=== PATIENT | female | born 1980 | race Caucasian/White ===

== ENCOUNTER → 2021-06-25 | Outpatient (CLI) | payer BC ==
[~2021-06-25] MED LIST: ESCITALOPRAM OX20 MG PO
[2021-06-25 14:40] LABS: BASO % 1 % (0-3); EOS # 0.1 x10^3/uL (0.0-0.7); EOS % 1 % (0-3); HEMATOCRIT 37.9 % (36.0-47.0); HEMOGLOBIN 12.6 g/dL (12.0-15.5); LYMPH # 1.1 x10^3/uL (1.0-4.8); LYMPH % 17 % (24-48); MEAN CORPUSCULAR HEMOGLOBIN 29 pg (25-35); MEAN CORPUSCULAR HGB CONC 33 g/dL (31-37); MEAN CORPUSCULAR VOLUME 88 fL (79-100); MONO # 0.5 x10^3/uL (0.0-1.1); MONO % 8 % (0-9); NEUT # 4.7 x10^3/uL (1.8-7.7); NEUT % 73 % (31-73); PLATELET COUNT 273 x10^3/uL (140-400); RED BLOOD COUNT 4.31 x10^6/uL (3.50-5.40); RED CELL DISTRIBUTION WIDTH 12.8 % (11.5-14.5); WHITE BLOOD COUNT 6.5 x10^3/uL (4.0-11.0)
[2021-06-25 14:53] LABS: BILIRUBIN,URINE NEGATIVE (NEG); CLARITY,URINE CLEAR; COLOR,URINE YELLOW; NITRITE,URINE NEGATIVE (NEG); PROTEIN,URINE NEGATIVE (NEG-TRACE); UROBILINOGEN,URINE 0.2 mg/dL (0.2 mg/dL)
[2021-06-25 15:13] LABS: ALBUMIN 3.7 g/dL (3.4-5.0); CALCIUM 9.1 mg/dL (8.5-10.1); CREATININE 0.7 mg/dL (0.6-1.0); GFR 93.2; POTASSIUM 3.8 mmol/L (3.5-5.1); TOTAL BILIRUBIN 0.4 mg/dL (0.2-1.0); TOTAL PROTEIN 7.4 g/dL (6.4-8.2)
[2021-06-25 15:23] LABS: BACTERIA,URINE FEW /HPF (0-FEW)
[2021-06-25 15:24] LABS: RBC,URINE OCC /HPF (0-2)
== END ==
LOC: SURGPAT 13:30
PROVIDERS: ATTEND Obstetrics & Gynecology
DX: Z01.818 Encounter for other preprocedural examination (principal)
CPT/HCPCS: 36415; 80053; 81001; 85025; 87086

== ENCOUNTER 2021-06-27 06:04 | Day surgery (SDC) | payer BC ==
[2021-06-25 13:45] VITALS: BP 136/63
[~2021-06-27] VITALS: Ht 175.3 cm; Wt 76.0 kg
[~2021-06-27 06:04] MED LIST changes: +HYDROmorphone 2 MG/ML VIAL IVP PRN; +IV RINGERS,LACTATED 1000ML 1,000 ML IV SCH; +PROCHLORPERAZINE 10 MG/2 ML VIAL. IVP PRN; +fentaNYL PF VIAL 100 MCG/2 ML VIAL IVP PRN
[2021-06-27 06:30] VITALS: BP 113/85
[2021-06-27] MEDS ORDERED: ROCURONIUM 50 MG/5 ML VIAL. ONE (06:55)
[2021-06-27] MEDS ORDERED: LIDOCAINE 2% PF 5 ML VIAL. ONE (06:56)
[2021-06-27] MEDS ORDERED: PROPOFOL 10 MG/ML (20ML) VIAL. IV ONE ×3 (06:56→09:35)
[2021-06-27] MEDS ORDERED: DEXAMETHASONE SOD PHOS 4 MG/ML VIAL ONE (06:56)
[2021-06-27] MEDS ORDERED: ONDANSETRON PF 4 MG/2 ML VIAL. ONE (06:56)
[2021-06-27] MEDS ORDERED: MIDAZOLAM HCL/PF 2 MG/2 ML VIAL. ONE (07:13)
[2021-06-27] MEDS ORDERED: fentaNYL PF VIAL 100 MCG/2 ML VIAL ONE ×3 (07:13→10:48)
[2021-06-27] MEDS ORDERED: ESTROGENS, CONJ VAGINAL CREAM 30GM TUBE. ONE (07:15)
[2021-06-27] MEDS ORDERED: INDIGOTINDISULFONATE SODIUM 40 MG/5 ML AMPUL. ONE (07:15)
[2021-06-27] MEDS ORDERED: SCOPOLAMINE 1.5MG PATCH. TD ONE (07:15)
[2021-06-27] MEDS ORDERED: BUPIVACAINE-EPI 0.25%-1:200000 MPF 30 ML VIAL. ONE (07:15)
[2021-06-27] MEDS ORDERED: diphenhydrAMINE 50 MG/ML VIAL ONE (07:55)
[2021-06-27] MEDS ORDERED: KETOROLAC 30 MG/ML VIAL. ONE ×2 (09:05→09:08)
[2021-06-27] MEDS ORDERED: GLYCOPYRROLATE 1 MG/5 ML VIAL. ONE (09:05)
[2021-06-27] MEDS ORDERED: NEOSTIGMINE METHYLSULFATE 5 MG/5 ML SYRINGE. ONE (09:05)
[2021-06-27] MEDS ORDERED: SEVOFLURANE 61 TO 120 MINUTES. IH ONE ×2 (09:17→09:26)
--- NOTE | 2021-06-27 10:03 | PDOC ---
BRIEF OPERATIVE NOTE Date: Jun 27, 2021 Pre-Op Diagnosis pelvic pain with left adnexal mass Post-Op Diagnosis same plus extensive lysis of adhesions; left ovarian either hemorrhagic or endometrioma stuck to left pelvic sidewall and posterior uterus and left sided bowel adhesions Procedure Performed operative scope, extensive lysis of adhesions >1hr, LSO Surgeon Dr. Eleni Washburn Locomotive Oiler ALEXANDRA Wallis Anesthesiologist Dr. Berry Anesthesia Type: General Blood Loss 50cc IV Fluid 1700cc Urine Output 60cc concentrated via aranda Specimens Obtained left adnexal mass Findings very large left sided mass stuck to uterus and left sidewall, initially still not sure of origin, but became evident left ovarian cyst with dark old blood i nside it and stuck to uterus and left pelvic sidewall normal right tube and ovary, normal rest of uterus after got mass off of the left and posterior side normal appendix and RUQ bowel adhesed to left side above the left IP ligament that we had to free up to mobilize the bowel to move it out of the way to get to the left side also Complications none Operative Note [id number] ELEIN WASHBURN MD Jun 27, 2021 10:03
[2021-06-27] MEDS: fentaNYL PF VIAL 100 MCG/2 ML VIAL IVP PRN ×4 (10:11→10:58)
[2021-06-27] MEDS ORDERED: SIMETHICONE 80 MG TAB.CHEW PO PRN (10:15)
[2021-06-27] MEDS ORDERED: diphenhydrAMINE HCL 25 MG CAPSULE PO PRN (10:15)
[2021-06-27] MEDS ORDERED: MAG HYDROX/ALUMINUM HYD/SIMETH 30 ML ORAL.SUSP PO PRN (10:15)
[2021-06-27] MEDS ORDERED: 0.9 % SODIUM CHLORIDE 10 ML DISP.SYRIN. IV PRN (10:15)
[2021-06-27] MEDS ORDERED: CALCIUM CARBONATE 500 MG TAB.CHEW PO PRN (10:15)
[2021-06-27] MEDS ORDERED: HYDROcodone/APAP 5/325MG 1 TAB TABLET PO PRN (10:15)
[2021-06-27] MEDS ORDERED: diphenhydrAMINE 50 MG/ML VIAL IV PRN (10:15)
[2021-06-27] MEDS ORDERED: NALOXONE 0.4 MG/ML VIAL. IV PRN (10:15)
[2021-06-27] MEDS ORDERED: MORPHINE SULFATE 2 MG/ML INJ. ONE (10:23)
[2021-06-27] MEDS: MORPHINE SULFATE 2 MG/ML INJ. IVP PRN ×2 (10:27→10:36)
[2021-06-27] MEDS ORDERED: HYDROcodone/APAP 5/325MG 1 TAB TABLET PO ONE ×2 (10:45→11:45)
[2021-06-27 11:15] VITALS: BP 106/55
--- NOTE | 2021-06-27 11:21 | OP ---
DATE OF SURGERY: 06/27/2021 PREOPERATIVE DIAGNOSIS: Pelvic pain with a left adnexal mass. CAT scan and sonogram are unsure whether it is a pedunculated fibroid or a left ovarian complicated cyst. POSTOPERATIVE DIAGNOSES: Left adnexal mass with extensive adhesions of the bowel to the left sidewall above the IP ligament and the mass was adhesed to the left side of the uterus, posterior uterus and left sidewall, but ultimately ended up being a complex left ovarian cyst with dark blood in the middle either a hemorrhagic cyst or an endometrioma. PROCEDURE: Operative laparoscopy, extensive lysis of adhesions greater than one hour and ultimately left salpingo-oophorectomy. SURGEON: Eleni Washburn MD BIOMETRICS ANALYST: ALEXANDRA Wallis ANESTHESIOLOGIST: Kenneth Berry MD ANESTHESIA: General. ESTIMATED BLOOD LOSS: 50 mL. URINE OUTPUT: 60 mL concentrated via the Butler. INTRAVENOUS FLUIDS: 1700 mL of crystalloid. SPECIMENS: Left adnexal mass. FINDINGS: Very large left-sided mass stuck to the left side of the uterus, left pelvic sidewall and posterior uterus. Upon initial look, I could see the bladder and the fundal of the uterus looked normal with a normal right tube and ovary and round ligament, but the left side looked like all 1 big mass, being pulled from the left side over, so it looked like it was left adnexal but there was not a clear plane between the mass and the uterus initially and you could tell it was adhesed to the posterior uterus, but it became evident upon operating that it was left ovarian and that it was just stuck to everything and then ended up having a dark fluid in it consistent with either a hemorrhagic or an endometrioma. Right tube and ovary were normal. Appendix was grossly normal. Right upper quadrant was normal. No other bowel disease, just this left ovarian mass. COMPLICATIONS: None. DESCRIPTION OF PROCEDURE: This patient was taken to the operating room where general anesthesia was placed. The patient was placed in dorsal lithotomy position in [facility]. The patient's abdomen and vagina were prepped and draped in the normal sterile fashion and a Butler catheter had been inserted under sterile technique. Upon my arrival, a timeout was performed. Once everyone agreed on the patient, the site and the procedure, the antibiotics, the procedure was initiated. A bivalve speculum was placed in the patient's vagina. A single-tooth tenaculum was used to grasp the anterior lip of the cervix. The Valtchev uterine manipulator was placed through the endocervical os, locked on the single tooth tenaculum and the bivalve speculum was then removed. Top gloves were discarded and changed. Attention was then turned to the abdomen where a small supraumbilical skin incision was made with the scalpel, a curved Luli was used to dissect through the subcuticular layer to the fascia. The 5 mm Visiport was used to directly enter the abdominal cavity. Opening patient pressure was 3 mmHg. Carbon dioxide gas was used to appropriately insufflate the abdominal cavity to maintain a pressure of 15 mmHg. Overhead lights were dimmed and the patient was placed in Trendelenburg position. A right lower quadrant port was placed under direct visualization. She did have a very small adhesion on the right side of the bowel that was left untouched out of the way. Finding an area clear of any vasculature, transilluminating the abdominal wall, placing a small incision and placing the 5 mm disposable atraumatic port and under direct visualization, 4-5 mL of air was placed in the trocar cuff. Camera was moved laterally to look at the umbilical port. Once it was clear, 4-5 mL of air was also placed in this cuff. At this point, the mass did not move, it appeared to be coming from the left, but it was also stuck to the side of the uterus, so we put in a left lower quadrant port as well. It was all clear on that side, transilluminating the abdominal wall finding an area clear of any vasculature and placing the 5 mm disposable trocar and under direct visualization. Once this was done, we were able to get a few things in there, peel that mass. We could watch the mass, attenuating and pulling the left infundibulopelvic ligament. We could pull it off the sidewall and clearly see it. We had to take down the bowel adhesion that was just above the IP ligament first to mobilize it, bring it down and out of the way. Once the bowel moved, we could see the ureter getting down on to the left sidewall and the mass was partially off the sidewall, bit a deeper it was adhesed to the posterior cul-de-sac, both on the left and the posterior uterus, but we were able to lift the left round ligament, kind of cauterize under there, peel that mass off and see that it was not indeed coming from the left ovary. Once we found that ureter low, we got the left IP ligament to get the blood supply to the mass and we were able to peel it off going from that side and underneath the left round ligament. I did not cauterize the left round ligament and I left it in place because we were leaving the uterus. If it was normal, I was able to get into the left uteroovarian pedicle and cauterize and cut it and then keep kind of going back from the top and both sides peeling back to that posterior adhesions and mobilizing that mass. Upon doing this, the cyst did drain either hemorrhagic cyst or an endometrioma, but dark chocolate fluid drained out of the cyst and we were able to lift it up and mobilize it, peeled it off that posterior cul-de-sac and off the posterior uterus and off the left side of the uterus. Once the mass was off, irrigation was done to make sure everything was clear. We could watch the ureter, still go near the left round ligament at the top of going into the pelvis and at the pelvic brim there, going diving down and we could still watch it peristalse. Now, it did go into that area that was peeled off the sidewall, but there was no sharp dissection. It was all just blunt with either the blunt tip of the suction or it was just gently lifted and peeled off using the [place] on the actual mass and peeling it off the sidewall, but the ureter was still coursing down. There did not appear to be any trauma at all and it was still peristalsing and going down and diving into the pelvis and the urine remained clear. The right side was normal. We could see the ureter going down. The right tube and ovary were normal, so nothing was done on the right side. The uterus was left in place per patient's request as it was normal and the right tube and ovary suggests this left adnexal mass and extensive adhesions involving the left adnexal mass were done. Once it was peeled off, irrigation revealed hemostasis. We did place a 10/12 port. We did this before the end of the thing to lift up the uterus and peel it off the back of that sidewall and get that very posterior cul-de-sac and very posterior cervicouterine junction area clear and then the 10/12, the EndoCatch bag was placed through this port as well. The mass was placed in it and it was removed. Copious irrigation then again revealed hemostasis. Right and left pericolic gutters were clear. Again, we looked at the right upper quadrant, the appendix, the bowel, all were grossly normal. We looked at the ureters again at the end on both sides and Marcelino was placed over the left sidewall, posterior uterine area, left uterine area for hemostasis just to make sure it stayed white and powdery, nothing welled up at all. It appeared to be completely hemostatic, so at this point, the right and left lower quadrant ports, the trocar cuffs were taken down. They were removed under direct visualization, they were hemostatic. The suprapubic port was removed. It had already been removed to remove the EndoCatch bag, but it was then placed back in, so we could irrigate and looked around. It was removed and then the trocar cuff on the umbilical one was removed as well. All the gas was released from the abdominal cavity and it was removed. Kellys were used to grasp the fascia, and 0 Vicryl stitch, [id number] stitch was placed here to close the fascia on that 10/12 port suprapubically and then all 4 port sites, the suprapubic and then little tiny 5 were closed in a subcuticular fashion with 4-0 Monocryl, Mastisol and Steri-Strips. Bottom instruments were removed. Butler catheter was removed and she was brought to recovery room in stable condition. FREDDY/ARTURO DR: Radha TID: [id number]
--- NOTE | 2021-06-28 19:08 | PATHOLOGY ---
[facility] Accession Number: [id number] . 01 Material submitted: . ovary - LEFT OVARY AND LEFT ADNEXAL MASS. Modifiers: left . 01 Clinical history: . ADNEXAL MASS OPERATIVE LAPAROSCOPY WITH LSO . 02 Diagnosis: Fallopian tube and ovary, left salpingo-oophorectomy: - Endometrioma of ovary. - Capsular adhesions of ovary. - Focal endometriosis of fallopian tube. ([facility]:mm; 06/28/2021) [facility] 06/28/2021 1826 Local . 02 Comment: There is no evidence of malignancy. . ([facility]:mml; 06/28/2021) . 02 Electronically signed: . Kirt Tovar MD, Pathologist NPI- [id number] . 01 Gross description: . The specimen is received in formalin, labeled "Hannah Gary, left ovary and left adnexal mass" and consists of a previously opened and disrupted kendrick-dan dusky and hemorrhagic ovary (37 g, approximately 5.8 x 4.5 x 1.5 cm) with abundant attached kendrick and hemorrhagic soft tissue and attached intact, fimbriated fallopian tube (6.4 cm in length by 0.7 cm in diameter). The ovary displays a unilocular, empty, smooth walled cyst (5.5 cm in greatest dimension). Sectioning through the ovary reveals compressed dan parenchyma. Sectioning through the soft tissue reveals hemorrhagic and dusky cut surface. The fallopian tube is unremarkable. Marine Diesel Mechanic sections are submitted as follows: A1-A4: Ovary and soft tissue, represented A5: Fallopian tube, represented ([place]; 06/27/2021) DKA/DKA 06/27/2021 1801 Local . 02 Pathologist provided ICD-10: N73.6, N80.9 . 02 [facility] . [id number] Specimen Comment: A courtesy copy of this report has been sent to [phone] Specimen Comment: Report sent to Performed at: [address] [id number] MD Baldemar Stapleton MD Phone: [phone] Performed at: [address] [id number] MD Kirt Tovar MD Phone: [phone]
== END 2021-06-27 11:55 | disposition home or self-care (01) ==
LOC: SURG 06:04
PROVIDERS: ATTEND Obstetrics & Gynecology
DX: R10.2 Pelvic and perineal pain (principal); N73.6 Female pelvic peritoneal adhesions (postinfective); N80.1 Endometriosis of ovary; F41.9 Anxiety disorder, unspecified; Z79.899 Other long term (current) drug therapy; Z98.890 Other specified postprocedural states
CPT/HCPCS: 36415; 58661; 81025; 86850; 86900; 86901; 88305; A4314; A4364; A4930; A6219; J0690; J1100; J1200; J2250; J2270; J2405; J2704; J2710; J3010; J3490; A4351; A4657; J0780; J1885